=== PATIENT | female | born 1945 | race Caucasian/White ===

== ENCOUNTER 2018-11-08 07:03 | Day surgery (SDC) | payer MEDICARE, BC ==
[2018-11-08] MEDS ORDERED: Propofol 200 MG/20 ML SDV IV ONE (07:04)
[2018-11-08] MEDS ORDERED: Midazolam 1 MG/ML 2 ML SDV IV ONE (07:04)
[2018-11-08] MEDS ORDERED: Lactated Ringers 1,000 ML IV SCH (07:30)
--- NOTE | 2018-11-08 08:53 | PCM.OPNOTE ---
- General Post-Op/Procedure Note Date of Surgery/Procedure: 11/08/18 Operative Procedure(s): c scope Findings: sigmoid part of descending colon surgically absent scattered diverticuli Pre Op Diagnosis: screening Post-Op Diagnosis: sigmoid part of descending colon surgically absent. scattered diverticuli Anesthesia Technique: MAC Primary Surgeon: Linwood Penn Anesthesia Provider: Cristiane Fair Complications: None Condition: Good Free Text/Narrative:: see dictation
[2018-11-08 09:45] VITALS: BP 150/96
--- NOTE | 2018-11-08 13:58 | OR ---
DATE OF OPERATION: 11/08/2018 SURGEON: Linwood Penn MD PROCEDURE PERFORMED: Colonoscopy. PREOPERATIVE DIAGNOSIS: Need for screening scope. POSTOPERATIVE DIAGNOSIS: Scattered diverticula. INDICATIONS FOR PROCEDURE: This is a 73-year-old white female, referred for a followup colonoscopy. DESCRIPTION OF OPERATION: After an excellent IV sedation was administered, digital rectal exam was performed. No marked abnormality was noted. Flexible colonoscope was inserted and advanced to the ascending colon and appeared to be the cecum and slowly withdrawn. The following findings were noted. Ascending colon, unremarkable. Transverse colon, unremarkable. Descending colon and sigmoid, an obvious large amount of colon has been surgically removed, by record 27 inches. The colorectal anastomosis was unremarkable. She did have a couple of scattered diverticula just proximal to this anastomosis. The rectum was unremarkable. Due to the shortened colon, the 6 minute minimal exam time was not met for obvious anatomic reasons. RECOMMENDATIONS: Repeat colonoscopy in 10 years. /[id number] /ALEX
== END 2018-11-08 09:38 | disposition home or self-care (01) ==
LOC: FB.SDS 07:03
PROVIDERS: ATTEND Surgery
DX: Z12.11 Encounter for screening for malignant neoplasm of colon (principal); K57.30 Diverticulosis of large intestine without perforation or abscess without bleeding; I10 Essential (primary) hypertension; I25.10 Atherosclerotic heart disease of native coronary artery without angina pectoris; E11.3313 Type 2 diabetes mellitus with moderate nonproliferative diabetic retinopathy with macular edema, bilateral; E78.5 Hyperlipidemia, unspecified; F32.9 Major depressive disorder, single episode, unspecified; E66.9 Obesity, unspecified; Z68.42 Body mass index [BMI] 45.0-49.9, adult; Z88.1 Allergy status to other antibiotic agents; Z91.040 Latex allergy status; Z95.5 Presence of coronary angioplasty implant and graft; Z87.19 Personal history of other diseases of the digestive system; Z87.891 Personal history of nicotine dependence; Z90.49 Acquired absence of other specified parts of digestive tract; Z86.010 Personal history of colon polyps; Z79.4 Long term (current) use of insulin; Z79.82 Long term (current) use of aspirin; Z79.899 Other long term (current) drug therapy
CPT/HCPCS: 82962; G0105; J2250; J2704; J7120; 00811-QZ